=== PATIENT | female | born 1970 | race African-American/Black ===

== ENCOUNTER 2019-01-21 17:37 | Inpatient (IN) | payer BC ==
[~2019-01-21] VITALS: Ht 165.1 cm; Wt 79.0 kg
[2019-01-21 17:39] VITALS: BP 138/99
[2019-01-21 18:27] LABS: ABSOLUTE NEUTROPHILS 4.4 thou/uL (1.4-8.2); BASOPHILS 1.7 % (0.0-2.0); EOSINOPHILS 0.4 % (0.0-3.0); HEMATOCRIT 39.7 % (37.0-47.0); HEMOGLOBIN 13.4 gm/dL (12.0-15.0); LYMPHOCYTES 18.9 % (24.0-44.0); MCH 32.6 pg (26.0-34.0); MCHC 33.8 g/dL (28.0-37.0); MCV 96.5 fL (80.0-100.0); MONOCYTES 8.1 % (1.0-8.0); PLATELET COUNT 325 thou/uL (150-400); POLYS 70.9 % (36.0-66.0); RBC 4.11 mil/uL (4.20-5.00); RDW 15.2 % (10.5-14.5); WBC 6.2 thou/uL (4.0-11.0)
[2019-01-21 18:29] LABS: ICTOTEST (BILI CONFIRMATORY) Negative (Negative); URINE BILIRUBIN NEGATIVE (Negative); URINE BLOOD TRACE (Negative); URINE CLARITY CLEAR; URINE COLOR YELLOW; URINE GLUCOSE-RANDOM* NEGATIVE (Negative); URINE KETONES 1+ (Negative); URINE LEUKOCYTES NEGATIVE (Negative); URINE NITRITE NEGATIVE (Negative); URINE PROTEIN (DIPSTICK) TRACE (Negative)
[2019-01-21 18:42] LABS: ALBUMIN 3.2 g/dL (3.4-5.0); CREATININE 0.7 mg/dL (0.6-1.0); TOTAL BILIRUBIN 1.4 mg/dL (<0.1-1.0); TOTAL PROTEIN 7.9 g/dL (6.4-8.2)
[2019-01-21 18:48] LABS: POTASSIUM 2.9 mmol/L (3.5-5.1)
[2019-01-21] MEDS ORDERED: GABAPENTIN 100100 MG PO (19:25)
[2019-01-21 22:28] VITALS: BP 145/88
[2019-01-21] MEDS ORDERED: HYDROCHLOROTH12.5 M1 PO (22:42)
[2019-01-21] MEDS ORDERED: AMLODIPINE BESY10 MG PO (22:43)
[2019-01-22 00:59] VITALS: BP 138/93
--- NOTE | 2019-01-22 04:18 | NUR ---
PT ARRIVED AT FLOOR AROUND 2230; AOX4; TRANSFER FROM STRETCHER TO BED; ST. FEELING WEAKNESS OVER LEGS; NO ABLE TO AMBULATE INDEPENDENTLY; DURING ASSESSMENT NO C/O PAIN; EDUCATED ABOUT FALL PREVENTIONS; BED SIDE COMMODE NEXT TO BED; ST. UNDERSTANDING; EKG PERFORMED PER ORDER; CHECK CHART; AT AROUND 0300 PT. REQUESTED TO USE THE BED SIDE COMMODE; WEAK; NOT ABLE TO [place] STRAIGHT WITHOUT 2 PEOPLE ASSISSTANCE; REMINDED ABOUT NOT TRYING TO STAND UP WITHOUT CALLING FIRST; ST. UNDERSTANDING; ASSESSMENT CHARGED; FOLLOWING POC; MONITORING K & MG; WILL PASS ON REPORT.
[2019-01-22 04:45] VITALS: BP 148/96
[2019-01-22 04:48] LABS: CALCIUM 8.6 mg/dL (8.5-10.1); CREATININE 0.5 mg/dL (0.6-1.0); MAGNESIUM 1.9 mg/dL (1.8-2.4); POTASSIUM 3.1 mmol/L (3.5-5.1)
[2019-01-22 08:22] VITALS: BP 144/68
--- NOTE | 2019-01-22 15:20 | NUR ---
Case opened to follow for dc planning. Pt is a&ox3 but appears overwhelmed. She reports that she lost her job one month ago and does not have insurance. She may have cobra paperwork at home but would need to review her mail. She lives alone in a ground level apt with no steps. She was independent prior to admission. Neuro workup in progress d/t progressive weakness and falls. Therapy and rehab evals in progress. The pt [facility] [place] and she is over resourced at this time. The pt reports that her family lives in [facility] [facility] and that she has limited support. She does not have anyone that can bring her mail to her from the apt. She reports her pcp is with [facility], Dr. Shirley Slade. Will follow.
[2019-01-22 16:00] VITALS: BP 123/85
--- NOTE | 2019-01-22 16:04 | NUR ---
ASSESSMENT CHARTED, ALERT AND ORIENTED, VSS, AMBULATES WITH STAND BY ASSIST, NO COMPLAINTS OF PAIN, NS WITH K INFUSING AT 75 IN LAC. STATES NO NEEDS WILL CONTINUE TO MONITOR.
[2019-01-22 16:09] LABS: HIV ANTIBODY Non Reactive (Non Reactive)
[2019-01-22 19:32] VITALS: BP 125/82
[2019-01-23 00:36] VITALS: BP 143/97
--- NOTE | 2019-01-23 04:47 | NUR ---
ASSUME CARE 1900. PT/VITALS STABLE. DENIES ANY PAIN. UNSTEADY GAIT NOTED. PT GIVEN WALKER TO HELP WITH AMBULATION.FALL RISK. ASSESSMENT CHARTED. PROGRESSING SLOWLY WITH POC. ADEQUATE REST NOTED. A/O X 4. PLAN IS TO CONSULT NEUROLOGY AND CONDUCT A THORACOLUMBAR MRI TO FURTHER ASSESS PT'S CONDITION. WILL CONTINUE TO MONITOR AND FOLLOW WITH POC
[2019-01-23 04:55] LABS: HEMATOCRIT 36.5 % (37.0-47.0); HEMOGLOBIN 12.1 gm/dL (12.0-15.0); MCH 32.2 pg (26.0-34.0); MCHC 33.2 g/dL (28.0-37.0); MCV 97.1 fL (80.0-100.0); RBC 3.76 mil/uL (4.20-5.00); WBC 6.2 thou/uL (4.0-11.0)
[2019-01-23 05:06] LABS: CALCIUM 8.8 mg/dL (8.5-10.1); CREATININE 0.6 mg/dL (0.6-1.0); MAGNESIUM 1.6 mg/dL (1.8-2.4); POTASSIUM 4.5 mmol/L (3.5-5.1)
[2019-01-23 05:36] VITALS: BP 128/88
[2019-01-23 07:37] VITALS: BP 141/97
--- NOTE | 2019-01-23 09:21 | EKG ---
[address] [address] ELECTROCARDIOGRAM REPORT Name: DENIS PADILLA Room #: 202-P ADM IN M.R.#: [id number] ������������������ Admission: 01/21/19 ������������������ Attend Phys: Kareem Mullen MD Discharge: ������������������ Date of : 66 Report #: [id number] ����������������������������������������������������������������� [id number] THIS REPORT FOR: //name// [facility] Test Date: 2019-01-22 Test Time: 01:08:17 Pat Name: DENIS PADILLA Department: Room: 202 P Gender: F Compo Conveyor Operator: unk : 1970 Requested By: Fariba Flores Order Number: [id number] MD: Nolberto Lamas Measurements Intervals [place] Rate: 82 P: 50 HI: 131 QRS: 8 QRSD: 90 T: 30 QT: 416 QTc: 486 Interpretive Statements Sinus rhythm Borderline prolonged QT interval No previous ECG available for comparison Electronically Signed On 01-23-2019 9:21:20 CDT by Nolberto Lamas [email or web address] ��������������������������������������������� <ELECTRONICALLY SIGNED> ���������������������������������������� By: Nolberto Lamas MD, [facility] ��������������������������������������������� 01/23/19 0921 0108 0108 Nolberto Lamas MD, FACC /EPI
[2019-01-23 11:46] VITALS: BP 118/83
--- NOTE | 2019-01-23 11:53 | NUR ---
RECEIVED PT CARE APPROX 0700. A/O. PLEASANT. DENIES PAIN. NO NOTED SOA. NO NV. STAND BY WHEN UP TO BR. MEDS GIVEN ORDERED. PLANS FOR MRI AND SPINAL TAP TODAY. PT RESTING IN BED NO CONCERNS VOICED. WILL CONT. TO MONITOR.
--- NOTE | 2019-01-23 12:20 | NUR ---
Neruo workup continues today. Gunner abarca was here to follow up. Pt instructed to call her HR dept from her last job and have them fax her cobra info to cm so we can assist her with this. Cm also checking her last effective date with [place]. DX and therapy recommendations are pending. Pt does have a f/u appt for an EMG scheduled at [facility] in February. Will follow.
[2019-01-23 12:54] LABS: APTT 27.8 Seconds (24.5-32.8); FIBRINOGEN 357.5 mg/dL (210-360); PROTIME 10.8 Seconds (9.3-11.4)
[2019-01-23 15:27] LABS: VOLUME 15.5 ml
[2019-01-23 15:31] LABS: CSF CLARITY TRAUMATIC
[2019-01-23 15:32] LABS: CSF GLUCOSE 54 mg/dL (40-70); CSF PROTEIN 54 mg/dL (15-45)
[2019-01-23 15:37] LABS: CSF COLOR TRAUMATIC
[2019-01-23 16:58] LABS: CSF RBC 950 /mm3
[2019-01-23 17:00] VITALS: BP 123/90; BP 23/90
[2019-01-23 17:02] LABS: CSF WBC 8 /mm3 (0-10)
[2019-01-23 20:00] VITALS: BP 117/72
--- NOTE | 2019-01-23 21:41 | NUR ---
Assumed care at 1845. Pt resting in bed. AOX4. VSS. Has been walking steady with a walker. Stand by assist. Still feeling a little tingling sensation on lower extremity. Potassium in normal range. No identified needs at the moment. Call light within reach. Will continue to monitor.
[2019-01-23 22:06] LABS: SERUM ALBUMIN 3.1 g/dL (3.5-5.5)
[2019-01-24 04:00] VITALS: BP 110/83
[2019-01-24 08:20] VITALS: BP 116/75
[2019-01-24 15:40] VITALS: BP 115/80
--- NOTE | 2019-01-24 16:31 | HC ---
[facility] [place] [address] CONSULTATION Name: DENIS PADILLA Room #: 202-P [facility] IN M.R.#: [id number] Admission: 01/21/19 ������������������ Attend Phys: Kareem Mullen MD Discharge: ������������������ Date of : 66 Report #: [id number] THIS REPORT FOR: //name// CC: Shirley Mullen HISTORY OF PRESENT ILLNESS: The patient is a 48-year-old female who states that she has a several week history of paresthesias. The paresthesias actually began in the lower extremities in the feet. She now has paresthesias of the hands. In her history and physical, it states that the symptoms began this week; however, the patient told me that the symptoms began several weeks ago. She fell twice today because of the paresthesias. It was today for the first time that she reports the tingling of the hands. Apparently, the patient was evaluated at [facility] 3 weeks ago for similar symptoms and told that she had hypokalemia. Her medications were changed. She was placed on gabapentin. She followed up with Neurology at [facility] and was set up to have an EMG in February. PAST MEDICAL HISTORY: Hypertension. PAST SURGICAL HISTORY: Unremarkable. MEDICATIONS: At home, hydrochlorothiazide 12.5 mg daily, amlodipine 10 mg daily, gabapentin 100 mg t.i.d. ALLERGIES: None. VITAL SIGNS: Temperature 36.8, pulse rate of 92, respiratory rate 18, blood pressure 123/85, bedside pulse oximetry 100% on room air. LABORATORY DATA: Hematology: White blood cell count 6.2, hemoglobin 13.4, hematocrit 39.7, MCV 96.5, platelet count 235,000. Urinalysis, trace protein, 1+ ketones, trace blood, 2+ urobilinogen. Chemistry: Sodium 138, potassium 3.1, chloride 100, carbon dioxide 27, BUN 3, creatinine 0.5, glucose 86, total bilirubin 1.4. AST 44. The rest of the liver functions are unremarkable. HIV negative. IMAGING STUDIES: MRI of the head unremarkable. NEUROLOGIC EXAM: Cranial nerves 2-12 are grossly intact. Motor exam demonstrates symmetrical strength in all 4 extremities with tone and bulk normal. Reflexes are present in the upper and lower extremities. Plantar responses are flexor. Coordination demonstrates no evidence of dysmetria. Sensory exam was intact to light touch and proprioception. IMPRESSION: I have ordered an MRI of the cervical and thoracic spine, both with and without contrast to look for demyelinating disease. An MRI of the lumbar [address] [address] CONSULTATION Name: DENIS PADILLA Room #: 202-P [facility] IN M.R.#: [id number] Admission: 01/21/19 ������������������ Attend Phys: Kareem Mullen MD Discharge: ������������������ Date of : 66 Report #: [id number] spine will not be helpful as she has symptoms in the hands. I have also ordered a B12 level. If nothing can be found on neuro imaging, the next step would be a lumbar puncture. It is possible that the weakness is brought about by the hypokalemia. The paresthesias could also be caused by hypokalemia. If she is significantly improved tomorrow once her potassium has returned to normal, then perhaps no further imaging studies will need to be done. I thank you for your kind referral of the patient and will continue to follow her with you. ��������������������������������������������� <ELECTRONICALLY SIGNED> ���������������������������������������� By: Dotty Mendez DO ��������������������������������������������� 01/24/19 1631 1738 1221 Dotty Mendez DO /nt
[2019-01-24 20:00] VITALS: BP 115/77
[2019-01-25 04:00] VITALS: BP 114/73
--- NOTE | 2019-01-25 05:20 | NUR ---
RECEIVED PT'S CARE AT 1920; PT. ON BED; AOX4; NO C/O PAIN; DURING ASSESSMENT; NO C/O PAIN; ST. FEELING BETTER; ABLE TO AMBULATE WITH WALKER FROM BED TO RESTROOM; AT AROUND 0300 PT'S PULLED IV; NEW IV STARTED; FLUIDS RUNNING THROUGHT THE NIGHT; CALLS APROPIATELY; WILL KEEP MONITORING; ASSESSMENT CHARGED; FOLLOWING POC; WILL PASS ON REPORT.
[2019-01-25 08:35] VITALS: BP 136/86
--- NOTE | 2019-01-25 12:23 | NUR ---
REPORT CALLED TO [facility] AND PT TRANSFERED TO ROOM 420.
[2019-01-25 19:16] VITALS: BP 90/63
[2019-01-26] VITALS (7 sets, daily range): BP systolic 102–123; BP diastolic 51–79
--- NOTE | 2019-01-26 03:24 | NUR ---
PT DENIED PAIN SO FAR.UP WITH SBA AND WALKER TO THE BR.ASSESSMENT COMPLETED.FALL PRECAUTIONS IN PLACE,PT CALLS APPROPRIATELY.NO BM THIS SHIFT.PT RESTING COMFORTABLT ON HER BED AT THIS TIME.CALL LIGHT WITHIN REACH.
--- NOTE | 2019-01-26 08:56 | NUR ---
Followup: N/v have resolved and diet advanced with tolerance. Pt reports usual wt around 175 lb, current wt reflects this. K remains wnl. Continues with bilateral leg weakness and workup continues. Change nutrition status to low nutrition risk
--- NOTE | 2019-01-26 14:25 | NUR ---
ON-GOING ASSESSMENT: MARVIN SPOKE WITH UTILIZATION REVIEW TECH WHO MET WITH PATIENT AND GOT HER EMPLOYER WELL NUMBER TO CONTACT IN ATTEMPTS TO GET PATIENT SIGNED UP FOR COBRA INSURANCE SINCE SHE STATES SHE IS NO LONGER EMPLOYED THERE FOR ABOUT 2 WEEKS. PT WORKED AT [employer] IN [place], [place] [phone]. MARVIN CONTACTED THEM AND ASKED FOR HR WHICH THEY STATED SHE IS NOT IN TODAY AND WAS PROVIDER WITH ANOTHER CONTACT NUMBER FOR [employer] [phone]. MARVIN ATTEMPTED TO CONTACT [employer] BUT WAS UNABLE TO REACH AND VM WAS LEFT.
--- NOTE | 2019-01-26 15:46 | NUR ---
PT HAS BEEN FINE AND CALLING OUT FOR ASSIST UNTIL 1425.TEST DRILLER TOOK PT TO BATHROOM AND TOLD PT TO CALL FOR ASSIST BACK TO BED WHEN FINISHED.PT FELL ON THE BATHROOM FLOOR WHILE TRYING TO GET OFF THE TOILET SEAT WITHOUT ASSIST AT 1430. DR FRYE NOTIFIED AND POST FALL PROTOCOL INITIATED.PT WAS ASSISTED BACK TO BED WITH 2 STAFF.BED ALARM ACTIVATED AND PT WAS ENCORAGED TO CALL FOR NEEDS. RN ASSESSED PT AND NO INJURY NOTED BUT RT KNEE XRAY DONE ORDERED.SINCE PT REPORTED THAT SHE WAS ON HER RT KNEE TO PREVENT BIG FALL.WILL CONTINUE TO MONITOR.
[2019-01-26 16:06] LABS: CSF IgG 5.5 mg/dL (0.0-8.6)
--- NOTE | 2019-01-27 00:34 | NUR ---
ASSUMED PT CARE 1899. PT ALERT AND ORIENTED. REASSESSMENT COMPLETE. VSS. IV DRESSING C/D/I, NO SIGNS OF INFILTRATION. PT JOE PAIN, DENIES N/V. PT UP TO BSC WITH GAITBELT AND 1 PERSON ASSIST. PT CALL LIGHT AND PERSONAL BELONINGS WITHIN REACH. WILL CONTINUE POC UNTIL EOS.
[2019-01-27 04:14] VITALS: BP 116/76
[2019-01-27 07:40] VITALS: BP 102/65
[2019-01-27 09:54] VITALS: BP 102/65
--- NOTE | 2019-01-27 13:04 | NUR ---
ON-GOING ASSESSMENT: CM REVIEWED CHART AND MET WITH PATIENT AT THE BEDSIDE THIS AM TO DISCUSS COBRA ENROLLMENT. CM CONTACTED PATIENTS EMPLOYER AND WAS GIVEN THE NUMBER [phone] IN ORDER TO ENROLL IN THE COBRA. CM AND PT SPOKE WITH THE MACHINE ASSEMBLER SUPERVISOR ON SPEAKER PHONE IN PATIENTS ROOM. MACHINE ASSEMBLER SUPERVISOR STATED HE COULD EMAIL THE COBRA ENROLLMENT FORM TO CM WITH APPROVAL BY PATIENT SO PATIENT COULD COMPLETE THE FORM AND GET IT BACK TO THEM DAGOBERTO. PTS COBRA WILL COST [phone] PER MONTH. CM DISCUSSED WITH CM DIRECTOR WHO IS WORKING WITH ADMINISTRATION IN ATTEMPTS TO HELP PATIENT WITH THIS COST SHE IS UNABLE TO AFFORD IT AND IS NEEDING POST ACUTE CARE. CM ASKED MACHINE ASSEMBLER SUPERVISOR HOW LONG IT WOULD TAKE TO COME INTO EFFECT ONCE SHE COMPLETED THE FORM. HE STATES ONCE THEY RECEIVE THE COMPLETED FORM AND THE PAYMENT FOR THEN IT TAKES ABOUT 7-10 DAYS OR IT CAN BE EXPEDITED IN SOME CASES AND TAKE ABOUT 2 DAYS. CM DISCUSSED THAT IT WOULD NEED TO BE EXPEDITED SHE IS WAITING TO GO TO A POST ACUTE CARE FACILITY. CM PRINTED OFF THE FORMS AND PROVIDED PATIENT WITH THE INFORMATION FOR HER TO COMPLETE. CM ALSO WORKING WITH CM DIRECTOR. CM WILL CONTINUE TO FOLLOW TO ASSIST NEEDED. 5N IS FOLLOWING PATIENT AND AWARE OF COBRA.
--- NOTE | 2019-01-27 13:48 | NUR ---
ASSUMED CARE AT 0700, SHIFT ASSESSMENT DONE, MEDS GIVEN, VSS. DENIES PAIN, NAUSEA, VOMITING. UP WITH STANDBY ASSIST TO THE BEDSIDE COMMODE, HAD A BM TODAY. STILL WEAK, RIGHT KNEE GIVES UP AT TIMES. SCHEDULED TO WORK WITH PHYSICAL AND OCCUPATIONAL THERAPHY. WAITING FOR INSURANCE APPROVAL AND REHAB PLACEMENT. WILL CONTINUE TO ASSESS AND ASSIST WITH ADLs NEEDED.
[2019-01-27 16:10] VITALS: BP 100/74
[2019-01-27 20:42] VITALS: BP 116/67
--- NOTE | 2019-01-28 00:31 | NUR ---
ASSESSMENT COMPLETED. PT IS ALERT AND ORIENTED. TOTAL WEAKNESS TO BLE, WORSE TO RLE. HIGH FALL RISK BECAUSE LEGS JUST BUCKLE WHENEVER SHE TRIES TO STAND. USING WALKER AND GAITBELT. UNDERSTANDS THE IMPORTANCE OF REMAINING SAFE FROM FALLS. VOIDS PER BSC. DENIES PAIN. SPEECH IS INTACT.NO VISION CHANGES. VSS.WILL CONTINUE WITH POC TILL EOS.
[2019-01-28 03:27] VITALS: BP 125/84
[2019-01-28 07:29] VITALS: BP 146/83
--- NOTE | 2019-01-28 13:07 | PATH ---
[facility] [place] [address] PATHOLOGY RPT PROCEDURE Name: DENIS PADILLA Room #: 420-P ADM IN M.R.#: [id number] ������������������ Admission: 01/21/19 ������������������ Date of : 66 Discharge: Report #: [id number] Path Case #: [id number] Note [facility] Accession Number: [id number] TESTS RESULT FLAG UNITS REF RANGE LAB Clinician Provided Cytology Information No. of containers..01 Other (Miscellaneous) Source: CSF DIAGNOSIS: 02 CSF NEGATIVE FOR MALIGNANT CELLS. NEGATIVE FOR VIRAL INCLUSIONS OR PARASITIC ORGANISMS. RARE LYMPHOCYTES IDENTIFIED. Pathologist ICD10: 02 E61.2, E87.6 Signed out by: Svitlana Coulter MD, Pathologist NPI- [id number] Performed by: Jamila Davis, Industrial Health And Safety Professor ([facility]) Gross description: 01 4ML, RED TINTED, CLEAR /LCS FLAG LEGEND: L-Low Normal,H-High Normal,LL-Alert Low,HH-Alert High <-Panic Low,>-Panic High,A-Abnormal,AA-Critical Abnormal Performed at: [address] [place] [address] Phill Nichols MD, [address] [address] Svitlana Coulter MD, Specimen Comment: A courtesy copy of this report has been sent to Specimen Comment: [phone], , . Specimen Comment: Report sent to Specimen Comment: Report sent to ,DR FRYE / DR MCKEON Specimen Comment: A duplicate report has been generated due to demographic updates. Performed at: [address], [place], [place] [id number] MD Phill Nichols MD Phone: [phone]
--- NOTE | 2019-01-28 13:38 | NUR ---
PT A&OX4, IV INTACT IN R HAND. TRANSFERS WITH ASSIST X2, WALKER AND GAITBELT. UNSTEADY WHEN TRANSFERING. TOLERATING PO WELL. PT/OT ARE WORKING WITH PT. PLANS ARE TO GO TO REHAB AT SOME POINT. DENIES ANY PAIN AT THIS TIME WILL CONT POC.
--- NOTE | 2019-01-28 15:38 | NUR ---
on-going assessment: cm reviewed chart and met with patient at the bedside. CM PROVIDED UR TECH WITH COMPLETED COBRA PAPERWORK AND CM HAS BEEN WORKING WITH CM DIRECTOR AND ADMINISTARTION IN ATTEMPTS TO GET COBRA PAYMENT AND ACTIVATION. CM UPDATED PATIENT. CM WILL CONTINUE TO FOLLOW TO ASSIST NEEDED.
[2019-01-28 17:48] VITALS: BP 98/52
[2019-01-28 20:13] VITALS: BP 114/81
[2019-01-29 05:22] VITALS: BP 120/71
--- NOTE | 2019-01-29 05:36 | NUR ---
ASSUMED CARE @1900 PT ALERT AND ORIENTED X4 DENIES PAIN. SLIGHTLY UNSTEADY WITH GAIT USES BEDPAN AT NIGHT. CALL LIGHT IN PLACE AND POC DONE WILL CONTINUE TO MONITOR
[2019-01-29 09:07] LABS: ABSOLUTE NEUTROPHILS 2.6 thou/uL (1.4-8.2); BASOPHILS 1.4 % (0.0-2.0); EOSINOPHILS 1.6 % (0.0-3.0); HEMATOCRIT 36.4 % (37.0-47.0); HEMOGLOBIN 12.2 gm/dL (12.0-15.0); LYMPHOCYTES 34.7 % (24.0-44.0); MCH 31.9 pg (26.0-34.0); MCHC 33.4 g/dL (28.0-37.0); MCV 95.5 fL (80.0-100.0); MONOCYTES 5.8 % (1.0-8.0); PLATELET COUNT 285 thou/uL (150-400); POLYS 56.5 % (36.0-66.0); RBC 3.81 mil/uL (4.20-5.00); RDW 14.2 % (10.5-14.5); WBC 4.6 thou/uL (4.0-11.0)
[2019-01-29 09:13] VITALS: BP 119/87
[2019-01-29 09:13] LABS: CALCIUM 9.8 mg/dL (8.5-10.1); CREATININE 0.7 mg/dL (0.6-1.0); MAGNESIUM 2.1 mg/dL (1.8-2.4); POTASSIUM 3.8 mmol/L (3.5-5.1)
--- NOTE | 2019-01-29 10:40 | NUR ---
ON-GOING ASSESSMENT: CM REVIEWED CHART AND MET WITH PATIENT AT THE BEDSIDE. CM CONTACTED PATIENTS INSURANCE IN ATTEMPTS TO GET COBRA EXPEDITED WITH PATIENT AT THE BEDSIDE ON SPEAKER PHONE ( ). ORTHOPAEDIC TECHNOLOGIST STATING THAT THEY HAVE NO RECEIVED THE PAYMENT IN THE MAIL AT THIS TIME SO THEY CAN ONLY EXPEDITE IT ONCE THE PAYMENT HAS BEEN RECEIVED. HE SUGGEST WE CONTACT THEM DAILY TO SEE IF THEY HAVE RECEIVED THE PAYMENT AND THEN ONCE THEY HAVE HE CAN START THE EXPEDITED PROCESS. CM WILL CONTINUE TO FOLLOW TO ASSIST NEEDED.
--- NOTE | 2019-01-29 12:22 | HC ---
[facility] [place] [address] CONSULTATION Name: DENIS PADILLA Room #: 420-P [facility] IN M.R.#: [id number] Admission: 01/21/19 ������������������ Attend Phys: Kareem Mullen MD Discharge: ������������������ Date of : 66 Report #: [id number] THIS REPORT FOR: //name// CC: Shirley Mullen DATE OF SERVICE: 01/22/2019 HISTORY OF PRESENT ILLNESS: The patient is a 48-year-old female admitted to [facility] with initial complaints of nausea and vomiting, which have subsequently resolved. She has had problems with numbness and tingling of both lower extremities with weakness and has had approximately 5 falls over the past 6 months. She was previously evaluated in the ER approximately 3 weeks ago. Noted to be placed on Neurontin. She also was scheduled to have EMGs at [facility] in February. She was admitted here and seen by Gastroenterology. Since her nausea and vomiting is better, the EGD is being put on hold as well as the PIPIDA scan. Regarding her lower extremity numbness, tingling, and weakness, she has had an MRI of the head, which showed mild atrophy and there is an MRI of the thoracolumbar spine, which is ordered as well as Neurology consultation. She denies any visual problems. No swallowing difficulties. No bowel or bladder changes. As far as the falls, she notes that the legs will give way or is tripping, but no syncopal type component. PAST MEDICAL HISTORY: Includes hypertension. HABITS: Nonsmoker. Alcohol a few glasses of wine on the weekends. MEDICATIONS: Please see the medication listing. ALLERGIES: No known drug allergies. SOCIAL HISTORY: Lives alone in an apartment one level. No stairs. Recently lost her job. Gait was without assistive device. She does have family that is out of town, but she does not want to bother them if she needs any assistance. No specific friends per se that would be able to stay with her. She needs to be quite independent to be able to care for herself in her own apartment. REVIEW OF SYSTEMS: She notes that the nausea and vomiting are improved. No current chest pain, shortness of breath, and abdominal discomfort. PHYSICAL EXAMINATION: GENERAL: Pleasant 48-year-old female in no obvious distress. Alert, pleasant, oriented, appears to be a good historian. Facies are symmetric. VITAL SIGNS: Last recorded temperature 98.6, pulse 92, respirations 18, and blood pressure 144/68. NEUROLOGIC: EOMs are full. She does have some definite lateral nystagmus with [facility] [address] [place] [address] CONSULTATION Name: DENIS PADILLA Room #: [facility] IN M.R.#: [id number] Admission: 01/21/19 ������������������ Attend Phys: Kareem Mullen MD Discharge: ������������������ Date of : 66 Report #: [id number] several beats bilaterally. There is no horizontal nystagmus. Facies appeared symmetric. No obvious word finding deficits. She has functional range of motion of both upper extremities. Strength appears to be at least grade 4-/5. She does well with fvbtin-vg-xbxw and fine finger dexterity, negative Villagomez's. In her lower extremities, she has definite distal weakness with bilateral foot drop and an inversion tendency. She is unable to extend either large toes with extensor hallucis longus. I would grade her strength at 3+ to 4- proximally in bilateral lower extremity, hips and knees with ankle dorsiflexion a grade 3, eversion is 3-, extensor hallucis longus is less than antigravity. There is no clonus. She has definite decreased proprioception in both large toes and appears to have significant decreased sensation at least below the knees. ASSESSMENT: A 48-year-old female with the following problem list: 1. Significant distal bilateral lower extremity weakness with foot drop and definite decreased proprioception. Consideration for peripheral neuropathy. 2. Bilateral lateral nystagmus which may be a finding or may be a variant abnormality. 3. History of gait instability with noted ataxia per physical therapy. I did not test her gait. She has had multiple falls. 4. Nausea and vomiting, which have now resolved. PLAN: Agree with Neurology consultation as noted. MRI of the thoracolumbar spine is currently pending. She has already been scheduled for EMG nerve conduction velocity studies as an outpatient through [facility] in February. She lives alone with limited support. Therapy evaluations are underway and we will follow along regarding her rehab therapy needs. Thank you for asking us to assist in this patient's care. ��������������������������������������������� <ELECTRONICALLY SIGNED> ���������������������������������������� By: Duane Marroquin MD ��������������������������������������������� 01/29/19 1222 1453 0158 Duane Marroquin MD /nt
--- NOTE | 2019-01-29 16:46 | NUR ---
PT ASSESSED AT START OF SHIFT. JENNIFER LE WEAKNESS, NUMBNESS AND TINGLING-WEAKNESS WORSE ON RT. SOME TINGLING IN JENNIFER HANDS WELL. PT MENTATION IS SLIGHTLY SLOWER THAN NORMAL. NO NAUSEA AND EATING WELL. ASSISTED PT TO TRANSFER TO [facility] THIS AFTERNOON AND WAS ABLE TO STAND BUT LEGS VERY WOBBLY. LATER ON PHYSICAL THERAPY AMBULATED HER IN THE HALLS AND SHE DID FAIRLY WELL. PT HAS BEEN HAVING A VERY POSITIVE ATTITUDE RE HER PROBLEMS HOPING DIAGNOSIS WILL BE MADE SOON.
[2019-01-29 18:08] VITALS: BP 122/85
[2019-01-29 20:00] VITALS: BP 108/87
--- NOTE | 2019-01-30 02:46 | NUR ---
ASSUMED PT CARE 1899. PT ALERT AND ORIENTED. REASSESSENT COMPLETE. VSS. IV DRESSING C/D/I. PT TOO WEAK TO USE BSC TONIGHT, USING BEDPAN. DENIES PAIN, N/V. CALL LIGHT WITHIN REACH, WILL CONTINUE POC UNTIL EOS.
[2019-01-30 03:45] VITALS: BP 115/77
[2019-01-30 07:20] VITALS: BP 134/85
--- NOTE | 2019-01-30 16:12 | NUR ---
ASSUMED CARE AT 0700, SHIFT ASSESSMENT DONE, MEDS GIVEN, VSS. DENIES ANY NAUSEA, VOMITING, PAIN. BP MED GIVEN. NYSTATIN SCHEDULED. WORKED WITH PHYSICAL AND OCCUPATIONAL THERAPHY, WAS ABLE TO WALK AROUND THE HALLWAY WITH PT. ENCOURAGED TO SIT UP IN THE CHAIR, AGREED TO DO IT. WILL CONTINUE TO ASSESS AND ASSIST WITH ADLs NEEDED.
[2019-01-30 16:24] VITALS: BP 100/70
[2019-01-30 20:00] VITALS: BP 117/70
--- NOTE | 2019-01-31 04:59 | NUR ---
ALERT AND ORINTED. STILL WEAK.ABLE TO LIFT BOTH LEGS AND WAS ABLE TO MOVE FROM CHAIR TO BED USING WALKER WITH ASSIST X2. USES BSC FOR VOIDING NEEDS. AFEBRILE. WILL CONTINUE WITH POC TILL EOS.
[2019-01-31 06:05] VITALS: BP 126/81
[2019-01-31 07:24] VITALS: BP 120/76
--- NOTE | 2019-01-31 07:47 | NUR ---
ASSESMENT COMPLETED. VSS. A/O. DENIES PAIN. NO SOA. NO NV. UP WITH ASSIST. RESTING IN BED AT THIS TIME. WILL CONT. TO MONITOR.
--- NOTE | 2019-01-31 12:00 | NUR ---
PT TRYING TO GET OUT OF BED AND TRYING TO UNTIE OTHER RESTRAINT WHEN 1 ARM BEING REMOVED OFF RESTRAINTS TEMPORARILY. NUTRITION BEING GIVEN Q2H. BATH GIVEN BY ROUTE SALES MANAGER TODAY. MEDS GIVEN ORDERED. WILL CONT. TO MONITOR.
--- NOTE | 2019-01-31 16:48 | NUR ---
PT TRANSFERRED TO 463. NO CHANGE SINCE AM ASSESMENT. BED ALARM ON. WILL CONT. TO MONITOR.
[2019-01-31 21:55] VITALS: BP 116/86
--- NOTE | 2019-02-01 00:21 | NUR ---
ASSESSMENT COMPLETED. PT IS ALERT AND ORIENTED X 3. PT STILL HS SOME BLE WEAKNESS. REQUIRES ASSIST X1 USING A WALKER FOR TRANSFERS. AFEBRILE. PT IS GETTING BETTER WITH TRANSFERS. CALL LIGHT WITHIN REACH. NO FURTHER CONCERNS.
[2019-02-01 05:35] VITALS: BP 118/80
[2019-02-01 08:00] VITALS: BP 121/87
--- NOTE | 2019-02-01 12:57 | NUR ---
PATIENT CARE WAS ASSUMED AT 0715.PATIENT IS ALERT AND ORIENTED X4.PATIENT RESTING IN BED.PT GETS UP WITH ASSIST X1 WITH GAIT BELT AND WALKER.PT CAN BE UNSTEADY AT TIME, BUT HAS IMPROVED.PT IS ROOM AIR.PT MAY DISCHARGE TOMORROW WITH HOME HEALTH AND OUTPATIENT REHAB.
[2019-02-01 15:00] VITALS: BP 108/70
[2019-02-01 19:50] VITALS: BP 100/64
--- NOTE | 2019-02-02 00:45 | NUR ---
RECEIVED REPORT FROM OFFGOING DAY SHIFT, ASSUMED CARE OF PT @ 19:15, SITTING IN CHAIR IN ROOM, A&OX4, X1 ASSIST WITH GAIT BELT D/T BLE WEAKNESS. DENIES PAIN. LUNG SOUNDS CTA ON RA, HRRR, ABD NORMOACTIVE X4 Q. ACUCHECK 97, NO S/S INSULIN NECESSARY. CONVERSATIONAL AND PLEASANT AFFECT NOTED. CALL LIGHT WITHIN REACH, TELEPHONE AND PERSONAL ITEMS IN REACH, WILL CONTINUE TO MONITOR FOR PT SAFETY AND NEEDS.
[2019-02-02 05:49] VITALS: BP 114/80
[2019-02-02 07:57] VITALS: BP 122/84
--- NOTE | 2019-02-02 09:35 | NUR ---
Followup: eating 100% of meals and no complaints. Awaiting discharge soon. Pt remains at low nutrition risk
[2019-02-02] MEDS ORDERED: NYSTATIN100000 UNI SW&SWALLOW (12:54)
[2019-02-02] MEDS ORDERED: ZOFRAN ODT4 MG PO (12:54)
[2019-02-02 15:46] VITALS: BP 105/74
--- NOTE | 2019-02-02 16:24 | NUR ---
CM CALLED [employer] NUMBER IN ROOM WITH PT. THEY INDICATED THEY HAD RECIEVED PAYMENT. THEY INDICATE THEY WOUKD EXPEDITE REQUEST BUT THAT IT CAN TAKE UP TO 72 HRS. STILL LOOKING AT PT DISCHARGING TO 5N ONCE INSURANCE AUTH IS RECIEVED. CM TO FOLLOW INDICATED WITH DC PLANNING.
--- NOTE | 2019-02-02 18:15 | NUR ---
Assumed pt care this am pt is alert and oriented x 4. Stayed in her bed for most of the day and sat in her recliner late in the afternoon. Pt is able to walk from bed to the commode using a gait bet and a walker. Weakness is still noted but getting better as verbalized by the pt. Re-enforced fall precautions and for the pt to call the nurse each and every time she needs to get up from the bed. I was noted that she has a tendency not to call out and has fallen when she was in the other unit. Fall precautionf in place. POC followed. No signs of distress or complaints noted. DC orders given , awaiting placement in [facility]
[2019-02-02 20:02] VITALS: BP 113/76
[2019-02-03 03:53] VITALS: BP 114/74
--- NOTE | 2019-02-03 04:37 | NUR ---
A/O, calm and pleasant; denied pain, no n/v. walked to the bathroom with stand by assist; vss, afebrile, lab reviewed. will keep monitoring.
[2019-02-03 07:24] VITALS: BP 120/65
--- NOTE | 2019-02-03 08:28 | NUR ---
PATIENT IS APPROPRIATE FOR ACUTE REHAB ADMISSION AND AUTH WILL BE REQUESTED ONCE INSURANCE IS ACTIVE. WILL CONTINUE TO FOLLOW. THANK YOU FOR THIS REFERRAL.
[2019-02-03 15:26] VITALS: BP 108/63
--- NOTE | 2019-02-03 15:51 | NUR ---
AWAITING AUTH FOR PT TO GO TO 5[facility]. CM TO FOLLOW INDICATED WITH DC PLANNING.
--- NOTE | 2019-02-03 19:00 | NUR ---
ASSUMED CARE OF PATIENT AT 0715, PATIENT ALERT AND ORIENTED X 4. PATIENT UP WITH SBA WITH GAIT BELT AND WALKER. PATIENT DENIES PAIN THIS SHIFT. PATIENT HAS RIGHT HAND IV IN PLACE, FLUSHED WITH NS AND REMAINS PATENT. PATIENT WORKED WITH PHYSICAL THERAPY TODAY, AMBULATED IN HALLWAYS. PATIENT WAITING ON INSURANCE AUTH. FOR 5 [facility]. WILL CONTINUE TO MONITOR.
[2019-02-03 20:11] VITALS: BP 118/71
[2019-02-04 03:31] VITALS: BP 110/76
--- NOTE | 2019-02-04 04:59 | NUR ---
ASSUMED CARE OF PT AT 1900HRS. PT IS A0X4 AND CALLS FOR HELP NEEDED. PT HAD NO COMPLAINTS THIS SHIFT AND WAS ABLE TO GET SOME SLEEP. FALL PRECAUTION IN PLACE. PT UP WITH 1 ASSIST AND WALKER. NO OTHER S/S OF ACUTE DISTRESS. WILL CONTINUE TO MONITOR.
[2019-02-04 07:08] VITALS: BP 124/78
--- NOTE | 2019-02-04 14:07 | NUR ---
Received awake on bed. Due medications given as prescribed. Had PT session today, able to ambulate in hallway- tolerated session well. On room air. A+Ox4. On Stand by assist to bathroom with gait belt and walker. On PT/OT. Asked to CM re: rehab transfer, as per CM awaiting insurance approval. Vital signs stable.
[2019-02-04 14:26] VITALS: BP 122/77
--- NOTE | 2019-02-04 15:50 | NUR ---
CM AND PT CALLED [facility] AND THEY INDICATED THAT THEY HAD REACHED OUT TO [facility] AND THEIR RECORDS SHOULD BE UPDATED 24 HRS FROM 3:51 TODAY. THEY WILL CALL PT AND NOTIFY HER. CM TO FOLLOW UP WITH PT. CM NOTIFIED 5N LIAISON.
[2019-02-04 19:48] VITALS: BP 105/70
--- NOTE | 2019-02-05 03:18 | NUR ---
ASSUMED CARE OF PT AT 1900HRS. PT IS AOX4 AND USES CALL LIGHT APPROPRIATELY. PT DID NOT COMPLAIN OF ANY PAIN OR DISCOMFORT. NO S/S OF ACUTE DISTRESS. WILL CONTINUE TO MONITOR.
[2019-02-05 03:31] VITALS: BP 123/86
[2019-02-05 07:25] VITALS: BP 118/78
[2019-02-05 14:50] VITALS: BP 113/66
--- NOTE | 2019-02-05 15:16 | NUR ---
ASSUMED CARE OF PATIENT AT 0715, PATIENT ALERT AND ORIENTED X 4. PATIENT DENIES PAIN THIS AM. PATIENT UP WITH MIN. ASSIST X 1 WITH GAIT BELT AND WALKER. PATIENT WORKED WITH PT/OT TODAY. PATIENT HAS RIGHT HAND IV IN PLACE, FLUSHED WITH NS AND REMAINS PATENT. PATIENT STILL WAITING ON INSURANCE AUTH FOR [facility], [facility] [employer] WILL CALL BETWEEN 3-4 TODAY. WILL CONTINUE TO MONITOR.
[2019-02-05 19:58] VITALS: BP 120/78
--- NOTE | 2019-02-06 02:05 | NUR ---
PATIENT AOX4 MAKES NEEDS KNOWN. PATIENT CONTINENT OF BOTH BOWEL AND BLADDED THIS SHIFT. PATIENT CALM AND COOPERATIVE WITH CARE AND MEDS. PATIENT DENIED PAIN OR DISCOMFORT. PATIENT AMBULATES WITH A WALKER SLOWLY WITH STEADY GAITS IN THE ROOM. PATIENT IN BED ASLEEP AT THIS TIME BREATHING REGULAR AND UNLABOURED.
[2019-02-06 04:21] VITALS: BP 123/72
[2019-02-06 08:06] VITALS: BP 118/76
[2019-02-06 14:00] VITALS: BP 109/66
--- NOTE | 2019-02-06 17:11 | NUR ---
CM AND PT CALLED [employer] THIS AM THEY INDICATED THAT PT'S BENEFITS SHOW ACTIVE. CM NOTIFIED ALL INVOLVED PARTIES. PT'S INSURANCE WAS UPDATED IN THE SYSTEM AND 5N LIAISON SOUGHT AUTH THROUGH INSURANCE. AWAITING AUTH. CM TO FOLLOW INDICATED WITH EVENTUAL DC TO 5N.
--- NOTE | 2019-02-06 18:14 | NUR ---
PT STABLE THROUGHOUT SHIFT. PT HAD NO C/O PAIN OR SOA. PT WILL DC TO REHAB WHEN AUTHORIZATION RECIEVED. FALLS PRECAUTIONS IN PLACE. PT RESTING COMFORTABLY.
[2019-02-06 21:35] VITALS: BP 119/82
[2019-02-07 04:50] VITALS: BP 100/47
[2019-02-07 07:39] VITALS: BP 93/72
--- NOTE | 2019-02-07 08:04 | NUR ---
Assumed care at 1845. Pt resting in bed. AOX4. VSS. Up X1 Assist with walker and gait belt. No identified needs at the moment. Will continue to monitor.
[2019-02-07 15:36] VITALS: BP 117/79
[2019-02-07 19:15] VITALS: BP 136/91
--- NOTE | 2019-02-07 19:17 | NUR ---
PT VITAL SIGNS STABLE THROUGHOUT SHIFT. PT WORKED WELL WITH PT, FALL PRECAUTIONS IN PLACE, PT RESTING COMFORTABLY.
--- NOTE | 2019-02-08 03:09 | NUR ---
patient aox4 makes needs known. patient ambulates slowly with steady gaits. patient denied pain or discomfort. patient calm and cooperative with care and med. patient in bed asleep at this time breathing regular and unlaboured.
[2019-02-08 03:59] VITALS: BP 134/90
[2019-02-08 08:33] VITALS: BP 122/80
--- NOTE | 2019-02-08 18:46 | NUR ---
PT STABLE THROUGHOUT SHIFT. NO C/O PAIN, SOA, N/V. MT WAITING ON AUTHORIZATION FOR REHAB.
[2019-02-08 19:30] VITALS: BP 125/79
--- NOTE | 2019-02-09 04:44 | NUR ---
PATIENT ALERT AND ORIENTED X4. UP WITH WALKER AND SBA. DENIES PAIN. COOPERATIVE WITH CARE. RESTING QUIETLY DURING THE NIGHT. WILL MONITOR.
[2019-02-09 08:00] VITALS: BP 119/79
--- NOTE | 2019-02-09 14:23 | NUR ---
REQUEST FOR AUTHORIZATION COMPLETED THIS DATE AND CALL RECEIVED BACK FROM [facility] HEALTH AND PHYSICAL EDUCATION PROFESSOR, ALANNA, STATING THAT REQUEST FOR ACUTE REHAB AUTHORIZATION HAD BEEN DENIED. IF PHYSICIAN WOULD LIKE TO PERFORM PEER TO PEER, PLEASE CALL . PATIENT CASE NUMBER IS [id number]. THANK YOU FOR THIS REFERRAL.
[2019-02-09 15:00] VITALS: BP 113/74
--- NOTE | 2019-02-09 15:55 | NUR ---
ASSUMED CARE 0700.A/OX4, DENIES PAIN. STAND BY ASSIST WITH WALKER. OT ROUNDED WITH PATEINT A PARTIAL BATH GIVEN. PT CALLS APPROPRIATELY. PROGRESSING AND WAITING FOR INSURANCE AUTHORIZATION FOR REHAB. FALL PRECAUTIONS IN PLACE.
[2019-02-09 21:51] VITALS: BP 149/89
--- NOTE | 2019-02-10 05:14 | NUR ---
Assumed care of PT @1900. PT A&O X4. DENIES PAIN. USES WALKER WITH SBA. POC DONE AND VSS. CALL LIGHT WITHIN REACH AND WILL CONTINUE TO MONITOR.
[2019-02-10 05:58] VITALS: BP 126/85
[2019-02-10 07:11] VITALS: BP 122/79
[2019-02-10 09:29] VITALS: BP 122/79
--- NOTE | 2019-02-10 10:33 | NUR ---
Followup: eating well, K and Mg remain wnl. Awaiting discharge options. Remains low nutrition risk
--- NOTE | 2019-02-10 11:13 | NUR ---
senior peoplesoft developer [facility]
[2019-02-10 14:54] VITALS: BP 117/72
--- NOTE | 2019-02-10 15:03 | NUR ---
ASSUMED CARE 0700. A/OX4, STAND BY ASSISTANCE WITH WALKER/GAIT BELT. PROGRESSING TOWARDS GOALS. WA TO [address] [place] [address] REHAB TODAY. FALL PRECAUTIONS IN PLACE. USES [facility].
[2019-02-10 21:23] VITALS: BP 129/68
--- NOTE | 2019-02-11 03:48 | NUR ---
PATIENT AOX4 MAKES NEEDS KNOWN. PATIENT DENIED PAIN OR DISCOMFORT. PATIENT AMBULATES WITH STEADY IN THE ROOM AND IN THE BATHROOM. PATIENT CALM AND COOPERATIVE WITH CARE AND MEDS. PATIENT IN BED ASLEEP AT THIS TIME BREATHING REGULAR AND UNLABOURED.
[2019-02-11 07:19] VITALS: BP 123/79
[2019-02-11 09:28] VITALS: BP 123/79
--- NOTE | 2019-02-11 13:50 | NUR ---
dp sent today's pt notes to Jamie/[facility]ave[facility] and let Jamie know to expect them. Still waiting on authorization, patient is ready to dc today.
--- NOTE | 2019-02-11 15:16 | NUR ---
Received awake on bed. Due medications given as prescribed. A+Ox4. On room air. With SL at R hand. Able to ambulate with walker, gait belt and on standby assist. Still a/w insurance approval re: rehab placement- CM aware and awaiting for her input. Vital signs stable. Falls risk- falls bundle in place.
[2019-02-11] MEDS ORDERED: COLACE100 MG PO (15:55)
[2019-02-11] MEDS ORDERED: TYLENOL325 M1 PO (15:55)
[2019-02-11] MEDS ORDERED: NYSTATIN100000 UNI SW&SWALLOW (16:00)
--- NOTE | 2019-02-11 18:19 | NUR ---
INSURANCE DENIED 5N REFERRAL WAS SENT TO [facility]. TODAY [facility] INDICATED THAT THEY HAVE AUTH. CHART COPIED. ORDERS FAXED. PT AND FAMILY AWARE AND AGREEABLE. NO OTHER CM INTERVENTIN INDICATED. CASE CLOSED.
== END 2019-02-11 18:50 | DRG 59 ==
LOC: ER 17:37 → 2N 20:03 → 4W 20:03 → EROBS 20:03 → 2N 22:24 → 4E 01-25 12:30 → 4W 01-31 15:53
PROVIDERS: Emergency Medicine; Nurse Practitioner; Nurse Practitioner Acute Care; Psychiatry & Neurology Neurology; ADMIT Internal Medicine
PROC: B01B1ZZ Fluoroscopy of Spinal Cord using Low Osmolar Contrast (ICD-10-PCS; principal; 2019-01-23)
PROC: 009U3ZX Drainage of Spinal Canal, Percutaneous Approach, Diagnostic (ICD-10-PCS; principal; 2019-01-23)
DX: G35 Multiple sclerosis (principal); B37.0 Candidal stomatitis; I10 Essential (primary) hypertension; E87.6 Hypokalemia; E83.42 Hypomagnesemia; M21.372 Foot drop, left foot; M21.371 Foot drop, right foot; G62.9 Polyneuropathy, unspecified; R27.0 Ataxia, unspecified; H55.00 Unspecified nystagmus; Z79.899 Other long term (current) drug therapy
CPT/HCPCS: 10047; 10081; 10783